=== PATIENT | female | born 1995 | race Caucasian/White ===

== ENCOUNTER 2022-07-31 12:08 | Emergency (ER) | payer OTHER ==
[2022-07-31] MEDS ORDERED: Bacitracin 1 PK ONE (12:48)
[2022-07-31] MEDS ORDERED: Lidocaine 1% (PF) 30 ML VIAL ONE (12:56)
[2022-07-31] MEDS ORDERED: Boostrix 0.5 ML (Tdap) VIAL (>/=7 yrs of age) ONE (13:14)
== END 2022-07-31 13:43 | disposition home or self-care (01) ==
LOC: MADERS 12:08
DX: S61.012A Laceration without foreign body of left thumb without damage to nail, initial encounter (principal); X58.XXXA Exposure to other specified factors, initial encounter
CPT/HCPCS: 12001; 90471; 90715; J2001